=== PATIENT | female | born 1940 | race Caucasian/White ===

== ENCOUNTER → 2017-03-17 | Outpatient (CLI) | payer MEDICARE, OTHER ==
[~2017-03-17] MED LIST: LEVO50TA PO
== END | disposition home or self-care (01) ==
LOC: CFH 12:17
PROVIDERS: ATTEND Nurse Practitioner Family
DX: Z13.820 Encounter for screening for osteoporosis (principal); N64.4 Mastodynia; N95.8 Other specified menopausal and perimenopausal disorders; M81.0 Age-related osteoporosis without current pathological fracture; R92.1 Mammographic calcification found on diagnostic imaging of breast
CPT/HCPCS: 76642; 77080; G0204